=== PATIENT | female | born 1995 | race Caucasian/White ===

== ENCOUNTER 2022-10-19 06:53 | Day surgery (SDC) | payer OTHER ==
[~2022-10-19] VITALS: Ht 165.1 cm; Wt 111.1 kg
[2022-10-19] MEDS ORDERED: fentaNYL citrate 0.05 MG/ML VIAL ONE (07:44)
[2022-10-19] MEDS ORDERED: MIDAZOLAM 2 MG/2 ML VIAL ONE (07:44)
[2022-10-19] MEDS ORDERED: MIDAZOLAM 2 MG/2 ML VIAL IVP ONE (08:20)
[2022-10-19] MEDS ORDERED: fentaNYL citrate 0.05 MG/ML VIAL IVP ONE (08:20)
== END 2022-10-19 08:40 | disposition home or self-care (01) ==
LOC: MOR 06:53 → MMU 06:59 → MOR 08:40
PROVIDERS: ATTEND Internal Medicine Gastroenterology
DX: R10.13 Epigastric pain (principal)
CPT/HCPCS: 43239; J2250; J3010